=== PATIENT | male | born 1965 | race American Indian/Alaskan Native ===

== ENCOUNTER 2016-08-03 13:23 | Emergency (ER) | payer MEDICAID ==
[2016-08-03] MEDS ORDERED: KEPPRA 1,000 MG/NS 0.75% 100ML 1,000 MG/100 ML BAG IV ONE ×2 (13:41→13:43)
--- NOTE | 2016-08-03 13:50 | Emergency Department Report ---
ED Neuro Deficit HPI - General Chief Complaint: Neuro Symptoms/Deficit Stated Complaint: PASSED OUT Time Seen by Provider: 08/03/16 13:33 Source: patient Mode of arrival: Stretcher Limitations: Altered Mental Status, Physical Limitation - History of Present Illness Initial Comments: 51-year-old male presents to the emergency department via EMS for evaluation of altered mental status. Family states that the patient underwent brain surgery approximately 3 weeks ago at [place] for a tumor. He had been doing well since then. He was last seen normal last night at 8:30 PM. Family states that she found the patient lying on the floor just prior to arrival this morning. Patient states he thinks he may have had a seizure. He denies pain. There are no other complaints. -: During the night, unknown Last Observed Normal: 20:30 Location: speech, right face, dysarthria, right arm, right leg Presenting Symptoms: Present: Weak/Paralyzed One Side, Unable to Speak Clearly History of same: No Place: home Severity: severe Quality: weak Improves With: none Worsens With: none On Anticoagulants: No Context: found down Associated Symptoms: seizures Treatments Prior to Arrival: none - Related Data Home Medications: Home Medications Medication Instructions Recorded Confirmed Last Taken Dexamethasone [Decadron] 2 mg PO BID 08/03/16 08/03/16 Unknown levETIRAcetam [Keppra TAB] 1,000 mg PO BID 08/03/16 08/03/16 08/03/16 oxyCODONE /ACETAMINOPHEN [Percocet 2 tab PO Q6HR PRN 08/03/16 08/03/16 Unknown 5/325 mg] Allergies/Adverse Reactions: Allergies Allergy/AdvReac Type Severity Reaction Status Date / Time No Known Allergies Allergy Unverified 08/03/16 13:34 ED Review of Systems ROS: Stated complaint: PASSED OUT Other details as noted in HPI Comment: All other systems reviewed and negative Neurological: as per HPI, weakness ED Past Medical Hx - Past Medical History Previous Medical History?: Yes Additional medical history: Brain tumor - Surgical History Past Surgical History?: Yes Additional Surgical History: brain surgery 07/10/16 @ [place] - Family History Family history: no significant - Social History Smoking Status: Never Smoker - Medications Home Medications: Home Medications Medication Instructions Recorded Confirmed Last Taken Type Dexamethasone [Decadron] 2 mg PO BID 08/03/16 08/03/16 Unknown History levETIRAcetam [Keppra TAB] 1,000 mg PO BID 08/03/16 08/03/16 08/03/16 History oxyCODONE /ACETAMINOPHEN [Percocet 2 tab PO Q6HR PRN 08/03/16 08/03/16 Unknown History 5/325 mg] ED Neuro Physical Exam - General Limitations: Altered Mental Status, Physical Limitation General appearance: alert, in no apparent distress Suspected Stroke: Yes - Head Head exam: Present: atraumatic, normocephalic - Eye Eye exam: Present: normal appearance, PERRL, EOMI - ENT ENT exam: Present: normal orophraynx, mucous membranes moist, other (contusion noted to upper lip) - Neck Neck exam: Present: normal inspection, full ROM. Absent: tenderness - Respiratory Respiratory exam: Present: normal lung sounds bilaterally. Absent: respiratory distress - Cardiovascular Cardiovascular Exam: Present: regular rate, normal rhythm, normal heart sounds - GI/Abdominal GI/Abdominal exam: Present: soft, normal bowel sounds. Absent: distended, tenderness - Extremities Exam Extremities exam: Present: normal inspection, full ROM. Absent: tenderness - Back Exam Back exam: Present: normal inspection, full ROM. Absent: tenderness - Neurological Exam Neurological exam: Present: alert, motor sensory deficit, other (right-sided sharon-neglect) - NIHSS Assessment Interval: Baseline 1a. Level of Consciousness: alert 1b. LOC Questions: answers correctly 1c. LOC Commands: performs tasks correctly 2. Best Gaze: partial gaze palsy 3. Visual: no visual loss 4. Facial Palsy: minor paralysis 5b. Motor Arm Right: no movement 5a. Motor Arm Left: no drift 6a. Motor Leg Left: no drift 6b. Motor Leg Right: no movement 7. Limb Ataxia: absent 8. Sensory: severe/total sensory loss 9. Best Language: no aphasia 10. Dysarthria: severe dysarthria 11. Extinction/Inattention: profound inattention Total Score: 16 Stroke Severity: Moderate to Severe Stroke - Skin Skin exam: Present: warm, dry, intact ED Course Vital Signs 08/03/16 08/03/16 08/03/16 13:24 13:30 13:34 Temperature 98.9 F Pulse Rate 52 L 52 L Respiratory 11 L 14 Rate Blood Pressure 126/73 119/72 O2 Sat by Pulse 100 98 Oximetry 0608/03/16 08/03/16 13:39 13:40 13:56 Temperature Pulse Rate 52 L 51 L Respiratory 14 13 Rate Blood Pressure 126/73 126/73 O2 Sat by Pulse 99 99 Oximetry 08/03/16 08/03/16 08/03/16 14:12 14:20 14:30 Temperature Pulse Rate 59 L 58 L 56 L Respiratory 13 13 Rate Blood Pressure 108/73 108/73 109/70 O2 Sat by Pulse 100 100 99 Oximetry 08/03/16 08/03/16 08/03/16 14:40 14:50 15:00 Temperature Pulse Rate 58 L 58 L 57 L Respiratory 14 13 13 Rate Blood Pressure 109/70 109/70 111/68 O2 Sat by Pulse 99 99 100 Oximetry 08/03/16 08/03/16 08/03/16 15:10 15:20 15:30 Temperature Pulse Rate 59 L 55 L 60 Respiratory 12 13 14 Rate Blood Pressure 111/68 111/68 114/69 O2 Sat by Pulse 99 99 97 Oximetry 08/03/16 08/03/16 08/03/16 15:40 15:50 16:00 Temperature Pulse Rate 57 L 59 L 58 L Respiratory 15 13 13 Rate Blood Pressure 114/69 114/69 110/68 O2 Sat by Pulse 100 99 98 Oximetry - Lab Data Result diagrams: 08/03/16 13:47 08/03/16 13:47 Lab Results 08/03/16 08/03/16 08/03/16 Range/Units 13:47 13:47 13:47 WBC 15.4 H (4.5-11.0) K/mm3 RBC 5.14 H (3.65-5.03) M/mm3 Hgb 15.6 H (11.8-15.2) gm/dl Hct 47.3 H (35.5-45.6) % MCV 92 (84-94) fl MCH 30 (28-32) pg MCHC 33 (32-34) % RDW 14.5 (13.2-15.2) % Plt Count 199 (140-440) K/mm3 Add Manual Diff Complete Total Counted 100 Seg Neuts % (Manual) 91.0 H (40.0-70.0) % Band Neutrophils % 1.0 % Lymphocytes % (Manual) 1.0 L (13.4-35.0) % Reactive Lymphs % (Man) 0 % Monocytes % (Manual) 6.0 (0.0-7.3) % Eosinophils % (Manual) 0 (0.0-4.3) % Basophils % (Manual) 0 (0.0-1.8) % Metamyelocytes % 1.0 % Myelocytes % 0 % Promyelocytes % 0 % Blast Cells % 0 % Nucleated RBC % Not Reportable Seg Neutrophils # Man 14.0 H (1.8-7.7) K/mm3 Band Neutrophils # 0.2 K/mm3 Lymphocytes # (Manual) 0.2 L (1.2-5.4) K/mm3 Abs React Lymphs (Man) 0.0 K/mm3 Monocytes # (Manual) 0.9 H (0.0-0.8) K/mm3 Eosinophils # (Manual) 0.0 (0.0-0.4) K/mm3 Basophils # (Manual) 0.0 (0.0-0.1) K/mm3 Metamyelocytes # 0.2 K/mm3 Myelocytes # 0.0 K/mm3 Promyelocytes # 0.0 K/mm3 Blast Cells # 0.0 K/mm3 WBC Morphology Not Reportable Hypersegmented Neuts Not Reportable Hyposegmented Neuts Not Reportable Hypogranular Neuts Not Reportable Smudge Cells Not Reportable Toxic Granulation Not Reportable Toxic Vacuolation Not Reportable Dohle Bodies Not Reportable Pelger-Huet Anomaly Not Reportable Ana Rods Not Reportable Platelet Estimate Appears normal Clumped Platelets Not Reportable Plt Clumps, EDTA Not Reportable Large Platelets Not Reportable Giant Platelets Not Reportable Platelet Satelliting Not Reportable Plt Morphology Comment Not Reportable RBC Morphology Normal Dimorphic RBCs Not Reportable Polychromasia Not Reportable Hypochromasia Not Reportable Poikilocytosis Not Reportable Anisocytosis Not Reportable Microcytosis Not Reportable Macrocytosis Not Reportable Spherocytes Not Reportable Pappenheimer Bodies Not Reportable Sickle Cells Not Reportable Target Cells Not Reportable Tear Drop Cells Not Reportable Ovalocytes Not Reportable Helmet Cells Not Reportable [place] Bodies Not Reportable [place] Rings Not Reportable Candace Cells Not Reportable Bite Cells Not Reportable Crenated Cell Not Reportable Elliptocytes Not Reportable Acanthocytes (Spur) Not Reportable Rouleaux Not Reportable Hemoglobin C Crystals Not Reportable Schistocytes Not Reportable Malaria parasites Not Reportable Kushal Bodies Not Reportable Hem Pathologist Commnt No Sodium 143 (137-145) mmol/L Potassium 3.3 L (3.6-5.0) mmol/L Chloride 98.1 (98-107) mmol/L Carbon Dioxide 33 H (22-30) mmol/L Anion Gap 15 mmol/L BUN 14 (9-20) mg/dL Creatinine 0.7 L (0.8-1.5) mg/dL Estimated GFR > 60 ml/min BUN/Creatinine Ratio 20.00 % Glucose 86 (75-100) mg/dL Lactic Acid 1.80 (0.7-2.0) mmol/L Calcium 8.9 (8.4-10.2) mg/dL Magnesium 2.10 (1.7-2.3) mg/dL Total Bilirubin 0.30 (0.1-1.2) mg/dL AST 18 (5-40) units/L ALT 30 (7-56) units/L Alkaline Phosphatase 99 (35-129) units/L Total Protein 6.3 (6.3-8.2) g/dL Albumin 3.5 L (3.9-5) g/dL Albumin/Globulin Ratio 1.3 % TSH (0.270-4.200) mlU/mL 08/03/ Range/Units 13:47 WBC (4.5-11.0) K/mm3 RBC (3.65-5.03) M/mm3 Hgb (11.8-15.2) gm/dl Hct (35.5-45.6) % MCV (84-94) fl MCH (28-32) pg MCHC (32-34) % RDW (13.2-15.2) % Plt Count (140-440) K/mm3 Add Manual Diff Total Counted Seg Neuts % (Manual) (40.0-70.0) % Band Neutrophils % % Lymphocytes % (Manual) (13.4-35.0) % Reactive Lymphs % (Man) % Monocytes % (Manual) (0.0-7.3) % Eosinophils % (Manual) (0.0-4.3) % Basophils % (Manual) (0.0-1.8) % Metamyelocytes % % Myelocytes % % Promyelocytes % % Blast Cells % % Nucleated RBC % Seg Neutrophils # Man (1.8-7.7) K/mm3 Band Neutrophils # K/mm3 Lymphocytes # (Manual) (1.2-5.4) K/mm3 Abs React Lymphs (Man) K/mm3 Monocytes # (Manual) (0.0-0.8) K/mm3 Eosinophils # (Manual) (0.0-0.4) K/mm3 Basophils # (Manual) (0.0-0.1) K/mm3 Metamyelocytes # K/mm3 Myelocytes # K/mm3 Promyelocytes # K/mm3 Blast Cells # K/mm3 WBC Morphology Hypersegmented Neuts Hyposegmented Neuts Hypogranular Neuts Smudge Cells Toxic Granulation Toxic Vacuolation Dohle Bodies Pelger-Huet Anomaly Ana Rods Platelet Estimate Clumped Platelets Plt Clumps, EDTA Large Platelets Giant Platelets Platelet Satelliting Plt Morphology Comment RBC Morphology Dimorphic RBCs Polychromasia Hypochromasia Poikilocytosis Anisocytosis Microcytosis Macrocytosis Spherocytes Pappenheimer Bodies Sickle Cells Target Cells Tear Drop Cells Ovalocytes Helmet Cells [place] Bodies [place] Cells Bite Cells Crenated Cell Elliptocytes Acanthocytes (Spur) Rouleaux Hemoglobin C Crystals Schistocytes Malaria parasites Kushal Bodies Hem Pathologist Commnt Sodium (137-145) mmol/L Potassium (3.6-5.0) mmol/L Chloride (98-107) mmol/L Carbon Dioxide (22-30) mmol/L Anion Gap mmol/L BUN (9-20) mg/dL Creatinine (0.8-1.5) mg/dL Estimated GFR ml/min BUN/Creatinine Ratio % Glucose (75-100) mg/dL Lactic Acid (0.7-2.0) mmol/L Calcium (8.4-10.2) mg/dL Magnesium (1.7-2.3) mg/dL Total Bilirubin (0.1-1.2) mg/dL AST (5-40) units/L ALT (7-56) units/L Alkaline Phosphatase (35-129) units/L Total Protein (6.3-8.2) g/dL Albumin (3.9-5) g/dL Albumin/Globulin Ratio % TSH 1.380 (0.270-4.200) mlU/mL - Radiology Data Radiology results: report reviewed, image reviewed CT of the head was discussed with the radiologist. There is a moderate amount of edema noted in the left frontal and temporal lobes with approximately 1 cm of midline shift to the right. There is no hemorrhage. - Medical Decision Making Lab and imaging results reviewed and discussed with the family. Patient has had some further seizure activity in the emergency department. He has been given IV Keppra and IV Ativan. I have spoken with Dr. Shaikh, neurosurgery at [place]. Patient is being given IV dexamethasone for the cerebral edema. Patient has been accepted in transfer and is currently awaiting transport. - Differential Diagnosis stroke, ICH, seizure, Naeem's paralysis - Thrombolytic Inclusion/Exclusion Thrombolytic Exclusion Criteria: Onset of Symptoms Unknown Thrombolytic Contraindications: Head Trauma in Past 3 Mon, Seizure at Onset Critical care attestation.: If time is entered above; I have spent that time in minutes in the direct care of this critically ill patient, excluding procedure time. ED Disposition Clinical Impression: Mass of cerebral hemisphere [facility] Is pt being admited?: No Condition: Stable Time of Disposition: 16:00
--- NOTE | 2016-08-03 13:52 | Admit Criteria Form ---
Admission Criteria Documentation: MENTAL STATUS CHANGE Clinical Indications for Inpatient Care (Place 'X' for any and all applicable criteria): Ongoing inpatient care may be needed for 1 or more of the following(1)(2)(3)(5)( 6): [X ]I. Suspected serious etiology (eg, medical disorder, [employer] event) of altered mental status [ ]II. Danger to self or others not manageable at lower level of care [ ]III. Grave disability (eg, inability to perform self care necessary at lower level of care) [ ]IV. Agitation or inappropriate behavior interfering with care for primary condition (eg, attempting to discontinue lines or drains prematurely, unable to cooperate with respiratory care) [ ]V. Delirium [A] [D][E] as described by 1 or more of the following(26): [ ]a) Delirium due to alcohol or sedative [F] withdrawal [ ]b) Delirium of uncertain etiology that has not responded to appropriate empiric treatment [ ]c) Delirium that prevents performance of a life-sustaining function (eg, feeding or hydrating oneself) [ ]. General contraindications and/or Inappropriate clinical situations for Observational Care in patients with Mental Status Change, when ANY ONE of the following is required: [ ]a) Prediction of prolongation of LOS based on ANY ONE of the following may be considered as a contraindication for observational care 2, 3, 4, 5, 6, 7, 8, 9, 10, 11 [ ]i) Age > 65 yrs. [ ]ii) Patient arriving by ambulance [ ]iii) Patient with high acuity [ ]iv) Patient requiring vital sign monitoring [ ]v) Patient on IV medication [ ]b) Systolic blood pressures greater than or equal to 180mmHg 3, 12 [ ]c) Patient with altered mental status including delirium and other alteration of consciousness, (3) [ ]d) Patient whose discharge disposition will be to a fdc home or rehabilitation home should not be managed in Emergency Department Observation Unit. CMS rule requires 3 days hospital stay before such placement.3,13 [ ]e) Patient with failure to thrive due to broad array of etiologies 3,16,17 [ ]f) Inability to ambulate 3,14 Extended stay beyond goal length of stay for the primary condition may be needed until ALL of the following are present(3)(5): [ ]a) Underlying medical etiology of mental status change is absent, or has been established and adequately treated [ ]b) Danger to self or others is absent or manageable at lower level of care. [ ]c) Behavior crisis management, including physical or chemical restraints, is not required or available at lower level of car [ ]d) Substance or alcohol withdrawal is absent or manageable at lower level of care. [ ]e) Behavioral symptoms (eg, agitation, somnolence, inappropriate behavior) are absent, or are manageable at lower level of care. The original [facility] [employer] content created by [facility] has been revised. The portions of the content which have been revised are identified through the use of italic text or in bold, and [facility] has neither reviewed nor approved the modified material. All other unmodified content is copyright [facility]. Please see references footnoted in the original [facility] edition 2016
[2016-08-03] MEDS ORDERED: ATIVAN IV ONE (13:58)
[2016-08-03] MEDS ORDERED: ATIVAN ONE (14:01)
[2016-08-03 14:07] LABS: Hematocrit 47.3 % (35.5-45.6); Hemoglobin 15.6 gm/dl (11.8-15.2); Mean Corpuscular HGB Conc 33 % (32-34); Mean Corpuscular Hemoglobin 30 pg (28-32); Mean Corpuscular Volume 92 fl (84-94); Platelet Count 199 K/mm3 (140-440); Red Blood Count 5.14 M/mm3 (3.65-5.03); Red Cell Distribution Width 14.5 % (13.2-15.2); White Blood Count 15.4 K/mm3 (4.5-11.0)
--- NOTE | 2016-08-03 14:33 | Cat Scan Report ---
CT HEAD WITHOUT CONTRAST: HISTORY: Right sided aminoglycoside CVA, recent brain surgery. There are no comparison exams at this facility. Left frontotemporal craniotomy changes are noted. There is a large area of diminished attenuation in the left cerebral hemisphere measuring up to 7.9 x 4.4 cm in axial plane. This has the appearance of edema. This may represent a large area of ischemia. There is moderate sulcal effacement in the left cerebral hemisphere and right to left midline shift measuring up to 1 cm. No obvious herniation. The right cerebral hemisphere and posterior fossa are unremarkable. Ventricular size is within normal limits although there is compression of the left ventricle by edema in the left cerebral hemisphere. No large area of hemorrhage is appreciated. IMPRESSION: Abnormal edema and diminished attenuation throughout most of the left cerebral hemisphere. This is in the area of surgical changes. There are no comparison studies at this facility. I suspect this represents a large area of acute to subacute ischemia. These correlate with the patient's clinical history and consider further imaging with MRI as needed. These findings were discussed with Dr. Pinon in the emergency department at 1423 hrs.
[2016-08-03 14:34] LABS: Alanine Aminotransferase 30 units/L (7-56); Albumin 3.5 g/dL (3.9-5); Albumin/Globulin Ratio 1.3 %; Alkaline Phosphatase 99 units/L (35-129); Anion Gap 15 mmol/L; Blood Urea Nitrogen 14 mg/dL (9-20); Calcium 8.9 mg/dL (8.4-10.2); Carbon Dioxide 33 mmol/L (22-30); Chloride 98.1 mmol/L (98-107); Glucose 86 mg/dL (75-100); Potassium 3.3 mmol/L (3.6-5.0); Sodium 143 mmol/L (137-145); Total Protein 6.3 g/dL (6.3-8.2)
[2016-08-03] MEDS ORDERED: DECADRON IV ONE (14:56)
[2016-08-03 14:58] LABS: Basophils % (Manual) 0 % (0.0-1.8); Blastocytes % (Manual) 0 %; Diff Status Complete; Eosinophils % (Manual) 0 % (0.0-4.3); RBC Morphology Normal
[2016-08-03 17:32] VITALS: BP 111/76
== END 2016-08-03 17:33 | disposition short-term general hospital (02) ==
LOC: ED 13:23
DX: G93.89 Other specified disorders of brain (principal); C71.9 Malignant neoplasm of brain, unspecified
CPT/HCPCS: 36415; 70450; 80053; 82140; 83735; 84443; 85007; 85025; 96374; 96375; 99285; J1100; J1953; J2060; 82962

== ENCOUNTER 2017-02-02 14:06 | Emergency (ER) | payer MEDICAID ==
[2017-02-02] MEDS ORDERED: VIMPAT PO ONE (14:41)
[2017-02-02 15:11] LABS: Basophils % (Auto) 0.9 % (0.0-1.8); Eosinophils % (Auto) 0.5 % (0.0-4.3); Hematocrit 44.4 % (35.5-45.6); Hemoglobin 14.7 gm/dl (11.8-15.2); Mean Corpuscular HGB Conc 33 % (32-34); Mean Corpuscular Hemoglobin 29 pg (28-32); Mean Corpuscular Volume 88 fl (84-94); Platelet Count 212 K/mm3 (140-440); Red Blood Count 5.03 M/mm3 (3.65-5.03); Red Cell Distribution Width 16.5 % (13.2-15.2); White Blood Count 6.3 K/mm3 (4.5-11.0)
[2017-02-02 15:29] LABS: Anion Gap 18 mmol/L; BUN/Creatinine Ratio 6; Blood Urea Nitrogen 4 mg/dL (9-20); Calcium 8.9 mg/dL (8.4-10.2); Carbon Dioxide 23 mmol/L (22-30); Chloride 100.1 mmol/L (98-107); Creatine Kinase 31 units/L (55-170); Glucose 92 mg/dL (75-100); Potassium 3.8 mmol/L (3.6-5.0); Sodium 137 mmol/L (137-145)
[2017-02-02] MEDS ORDERED: KEPPRA 1,000 MG/NS 0.75% 100ML 1,000 MG/100 ML BAG IV ONE (15:29)
[2017-02-02] MEDS ORDERED: MAGNESIUM SULFATE 2GM/50ML 2 GM/50 ML BAG IV ONE (15:33)
--- NOTE | 2017-02-02 15:37 | Emergency Department Report ---
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 Patient has been noncompliant with Keppra and Vimpat for over 30 days because it was not refilled his doctors at [place]. Patient has a left-sided brain tumor with partial resection. He typically has seizures that involved the right side of his face but can also spread to the left side of his face during severe episodes. Patient had 5 of these seizures today Since 1 PM involving facial spasms. Patient complains of moderate facial pain secondary to the seizures. No extremity involvement today and patient denies any weakness or numbness - Related Data Home Medications Medication Instructions Recorded Confirmed Last Taken Dexamethasone [Decadron] 2 mg PO BID 08/03/16 08/03/16 Unknown Previous Rx's Medication Instructions Recorded Last Taken Type Acetaminophen [Acetaminophen TAB] 325 mg PO Q4H PRN #15 tablet 11/05/16 Unknown Rx Insulin Lispro [HumaLOG VIAL] 1 dose SQ AC #1 vial 11/05/16 Unknown Rx Nitrofurantoin [place]/M-Cryst 100 mg PO Q12HR #3 day 11/05/16 Unknown Rx [Macrobid CAP] methylPREDNISolone [Medrol Dose 1 dose PO DAILY #1 pack 11/05/16 Unknown Rx Don] oxyCODONE /ACETAMINOPHEN [Percocet 1 tab PO Q6HR PRN #30 tablet 11/05/16 Unknown Rx 5/325 mg] Lacosamide [Vimpat] 100 mg PO Q12HR #60 tab 02/02/17 Unknown Rx levETIRAcetam [Keppra TAB] 1,000 mg PO BID #60 tab 02/02/17 Unknown Rx Allergies Allergy/AdvReac Type Severity Reaction Status Date / Time SHRIMP AdvReac Swelling Uncoded 02/02/17 14:25 ED Review of Systems ROS: Stated complaint: SEIZURES Other details as noted in HPI Comment: All other systems reviewed and negative Other: Constitutional: No fevers chills Eyes: No eye pain visual changes ENT: No ear pain or throat pain Neck: Denies pain Respiratory: Denies cough wheezing shortness of breath Cardiovascular: Denies chest pain, palpitations, syncope GI: Denies abdominal pain, nausea, vomiting, diarrhea, : Denies dysuria Musculoskeletal: Denies back pain Skin: Denies rash, lesions, erythema Neurologic: Denies headache, numbness, weakness Psychiatric: Denies suicidal ideation, hallucinations ED Past Medical Hx - Past Medical History Hx Diabetes: Yes Hx Seizures: Yes (new onset) Additional medical history: Brain tumor - Surgical History Additional Surgical History: brain surgery 07/10/16 @ [facility] hx of [facility] dz - Social History Smoking Status: Current Every Day Smoker Substance Use Type: None - Medications Home Medications: Home Medications Medication Instructions Recorded Confirmed Last Taken Type Dexamethasone [Decadron] 2 mg PO BID 08/03/16 08/03/16 Unknown History Acetaminophen [Acetaminophen TAB] 325 mg PO Q4H PRN #15 tablet 11/05/16 Unknown Rx Insulin Lispro [HumaLOG VIAL] 1 dose SQ AC #1 vial 11/05/16 Unknown Rx Nitrofurantoin [place]/M-Cryst 100 mg PO Q12HR #3 day 11/05/16 Unknown Rx [Macrobid CAP] methylPREDNISolone [Medrol Dose 1 dose PO DAILY #1 pack 11/05/16 Unknown Rx Don] oxyCODONE /ACETAMINOPHEN [Percocet 1 tab PO Q6HR PRN #30 tablet 11/05/16 Unknown Rx 5/325 mg] Lacosamide [Vimpat] 100 mg PO Q12HR #60 tab 02/02/17 Unknown Rx levETIRAcetam [Keppra TAB] 1,000 mg PO BID #60 tab 02/02/17 Unknown Rx ED Physical Exam - General Limitations: No Limitations - Other Other exam information: General: No limitations, patient is alert in no acute distress Head exam: Atraumatic, normocephalic Eyes exam: Normal appearance ENT: Moist mucous membrane, normal oropharynx Neck exam: Normal inspection, full range of motion, no meningismus nontender Respiratory exam: Clear to auscultation bilateral, no wheezes, rales, crackles Cardiovascular: Normal rate and rhythm, normal heart sounds Abdomen: Soft, nondistended, and nontender, with normal bowel sounds, no rebound, or guarding Extremity: Full range of motion normal inspection no deformity Back: Normal Inspection, full range of motion, no tenderness Neurologic: Alert, oriented x3, cranial nerves intact, no motor or sensory deficit Psychiatric: normal affect, normal mood Skin: Warm, dry, intact ED Course Vital Signs 02/02/17 02/02/17 02/02/17 14:26 14:39 14:45 Temperature 98.8 F Pulse Rate 72 58 L Respiratory 16 Rate Blood Pressure 121/94 129/77 Blood Pressure [Left] O2 Sat by Pulse 97 96 98 Oximetry 02/02/17 02/02/17 02/02/17 15:03 15:15 15:30 Temperature Pulse Rate Respiratory Rate Blood Pressure 129/77 129/77 129/81 Blood Pressure [Left] O2 Sat by Pulse 98 98 98 Oximetry 02/02/17 02/02/17 02/02/17 15:45 17:24 17:30 Temperature Pulse Rate Respiratory Rate Blood Pressure 129/77 105/69 94/61 Blood Pressure [Left] O2 Sat by Pulse 97 96 92 Oximetry 02/02/17 17:45 Temperature Pulse Rate 58 L Respiratory 12 Rate Blood Pressure Blood Pressure 101/64 [Left] O2 Sat by Pulse 100 Oximetry - Reevaluation(s) Reevaluation #1: 02/02/17 15:36 Patient treated with by mouth Vimpat. IV Keppra and IV magnesium also ordered ED Medical Decision Making - Lab Data Result diagrams: 02/02/17 14:51 02/02/17 14:51 Lab Results 02/02/17 02/02/17 02/02/17 Range/Units 14:51 14:51 14:57 WBC 6.3 (4.5-11.0) K/mm3 RBC 5.03 (3.65-5.03) M/mm3 Hgb 14.7 (11.8-15.2) gm/dl Hct 44.4 (35.5-45.6) % MCV 88 (84-94) fl MCH 29 (28-32) pg MCHC 33 (32-34) % RDW 16.5 H (13.2-15.2) % Plt Count 212 (140-440) K/mm3 Lymph % (Auto) 15.0 (13.4-35.0) % [place] % (Auto) 6.9 (0.0-7.3) % Eos % (Auto) 0.5 (0.0-4.3) % Baso % (Auto) 0.9 (0.0-1.8) % Lymph # 0.9 L (1.2-5.4) K/mm3 [place] # 0.4 (0.0-0.8) K/mm3 Eos # 0.0 (0.0-0.4) K/mm3 Baso # 0.1 (0.0-0.1) K/mm3 Seg Neutrophils % 76.7 H (40.0-70.0) % Seg Neutrophils # 4.8 (1.8-7.7) K/mm3 Sodium 137 (137-145) mmol/L Potassium 3.8 (3.6-5.0) mmol/L Chloride 100.1 (98-107) mmol/L Carbon Dioxide 23 (22-30) mmol/L Anion Gap 18 mmol/L BUN 4 L (9-20) mg/dL Creatinine 0.7 L (0.8-1.5) mg/dL Estimated GFR > 60 ml/min BUN/Creatinine Ratio 6 % Glucose 92 (75-100) mg/dL POC Glucose 87 (70-105) Calcium 8.9 (8.4-10.2) mg/dL Magnesium 1.60 L (1.7-2.3) mg/dL Total Creatine Kinase 31 L (55-170) units/L - Medical Decision Making Patient has normal lab work with a session of mild hypomagnesemia which was supplemented IV. Patient received by mouth Vimpat and IV Keppra for his long- standing seizure disorder. A refill of these medications will be provided. Patient does not have a PMD in follow-up options for follow-up will be provided - Differential Diagnosis medication noncompliance, electrolyte abnormality, breakthrough seizure Critical Care Time: No Critical care attestation.: If time is entered above; I have spent that time in minutes in the direct care of this critically ill patient, excluding procedure time. ED Disposition Clinical Impression: Recurrent seizures, Noncompliance with medication regimen, Brain cancer, Hypomagnesemia Disposition: DC-01 TO HOME OR SELFCARE Is pt being admited?: No Does the pt Need Aspirin: No Condition: Stable Instructions: Recurrent Seizures Adult (ED), Hypomagnesemia (ED) Additional Instructions: Take the medications as prescribed. Continue to follow-up with your doctors. I provided several primary care doctors as an option for follow-up Prescriptions: Lacosamide [Vimpat] 100 mg PO Q12HR #60 tab levETIRAcetam [Keppra TAB] 1,000 mg PO BID #60 tab Referrals: NIKI HERNÁNDEZ MD [Primary Care Provider] - 3-5 Days JOSIANE FORTUNE MD [Staff Physician] - 3-5 Days SARAI MORA MD [Staff Physician] - 3-5 Days Time of Disposition: 17:53
[2017-02-02 18:55] VITALS: BP 104/67
== END 2017-02-02 18:56 | disposition home or self-care (01) ==
LOC: ED 14:06
DX: G40.909 Epilepsy, unspecified, not intractable, without status epilepticus (principal); Z91.14 Patient's other noncompliance with medication regimen; C71.9 Malignant neoplasm of brain, unspecified; F17.200 Nicotine dependence, unspecified, uncomplicated; E83.42 Hypomagnesemia
CPT/HCPCS: 36415; 80048; 82550; 82962; 83735; 85025; 96365; 96375; 99284; J1953; J3475

== ENCOUNTER 2018-08-17 21:40 | Emergency (ER) | payer MEDICAID, OTHER ==
[2018-08-17 22:06] LABS: Basophils # (Auto) 0.1 K/mm3 (0.0-0.1); Basophils % (Auto) 1.2 % (0.0-1.8); Eosinophils # (Auto) 0.1 K/mm3 (0.0-0.4); Eosinophils % (Auto) 0.8 % (0.0-4.3); Hematocrit 42.4 % (35.5-45.6); Hemoglobin 14.2 gm/dl (11.8-15.2); Lymphocytes # (Auto) 1.9 K/mm3 (1.2-5.4); Lymphocytes % (Auto) 22.6 % (13.4-35.0); Mean Corpuscular HGB Conc 34 % (32-34); Mean Corpuscular Volume 92 fl (84-94); Monocytes # (Auto) 0.7 K/mm3 (0.0-0.8); Monocytes % (Auto) 8.2 % (0.0-7.3); Platelet Count 329 K/mm3 (140-440); Red Blood Count 4.63 M/mm3 (3.65-5.03); Red Cell Distribution Width 15.2 % (13.2-15.2)
--- NOTE | 2018-08-17 22:08 | Emergency Department Report ---
ED Neuro Deficit HPI - General Chief Complaint: Neuro Symptoms/Deficit Stated Complaint: STROKE Time Seen by Provider: 08/17/18 22:00 Source: patient, EMS Mode of arrival: Stretcher Limitations: No Limitations - History of Present Illness Initial Comments: [facility] Impression: right sided weakness. Subdural post surgery v lvo. Suspect this is due to left hygroma post recent surgery; however, without previous imaging unclear to be able to tell if this is new or not and ? left mca hyperdensity could suggest lvo Not a tpa candidate due to: recent brain surgery Cta head and neck will be done to r/o lvo Differential Diagnosis: 1. Cardioembolic stroke 2. Small vessel disease/lacune 3. Thromboembolic, [id number] mechanism 4. Hypercoagulable state-related infarct 5. Transient ischemic attack 6. Thrombotic mechanism, large artery disease Comments: [employer] contacted: [phone] [facility] at bedside: [phone] Recommendations: No anticoagulants /antiplatelets at this time, given subdural collection Cta head and neck with and without contrast to be done here; however, would require transfer to [place] given his ct head changes for neurosurgery consult Neuro checks Telemetry Mechanical dvt prophy Continue current AEDs- give 1g Keppra now inpatient neurology consultation Inpatient stroke evaluation as per Neurology/ Internal Medicine Discussed with ED MD --------- CC right sided weakness History of Present Illness Patient is a 53 year old man who was brought to the hospital for right sided weakness, acute. No seizures witnessed per what family told ems. Recent left brain surgery this past week for brain tumor. Diagnostic: Ct head without contrast: left frontal/parietal/temporal subdural/hygroma, craniotomy on left hemisphere, left temporal lobe encephalomalacia. Bilateral mcas look hyperdense- left more than right Medical Decision Making: - Extensive number of diagnosis or management options are considered above. - Extensive amount of complex data reviewed. - High risk of complication and/or morbidity or mortality are associated with differential diagnostic considerations above. - There may be Uncertain outcome and increased probability of prolonged functional impairment or high probability of severe prolonged functional impairment associated with some of these differential diagnosis. Medical Data Reviewed: 1.Data reviewed include clinical labs, radiology, Medical Tests; 2.Tests results discussed w/performing or interpreting physician; 3.Obtaining/reviewing old medical records; 4.Obtaining case history from another source; 5.Independent review of image, tracing or specimen. Patient was informed the Neurology Consult would happen via telehealth (remote video) and consented to receiving care in this manner. - Related Data Home Medications: Home Medications Medication Instructions Recorded Confirmed Last Taken dexAMETHasone [Decadron] 2 mg PO BID 08/03/16 08/03/16 Unknown Previous Rx's Medication Instructions Recorded Last Taken Type Acetaminophen [Acetaminophen TAB] 325 mg PO Q4H PRN #15 tablet 11/05/16 Unknown Rx Insulin Lispro [HumaLOG VIAL] 1 dose SQ AC #1 vial 11/05/16 Unknown Rx Nitrofurantoin [place]/M-Cryst 100 mg PO Q12HR #3 day 11/05/16 Unknown Rx [Macrobid CAP] methylPREDNISolone [Medrol Dose 1 dose PO DAILY #1 pack 11/05/16 Unknown Rx Don] oxyCODONE /ACETAMINOPHEN [Percocet 1 tab PO Q6HR PRN #30 tablet 11/05/16 Unknown Rx 5/325 mg] Lacosamide [Vimpat] 100 mg PO Q12HR #60 tab 02/02/17 Unknown Rx levETIRAcetam [Keppra TAB] 1,000 mg PO BID #60 tab 02/02/17 Unknown Rx Allergies/Adverse Reactions: Allergies Allergy/AdvReac Type Severity Reaction Status Date / Time SHRIMP AdvReac Swelling Uncoded 02/02/17 14:25 ED Review of Systems ROS: Stated complaint: STROKE Other details as noted in HPI ED Past Medical Hx - Past Medical History Hx Diabetes: Yes Hx Seizures: Yes (new onset) Additional medical history: Brain tumor - Surgical History Additional Surgical History: brain surgery 07/10/16 @ [facility] hx of [facility] dz - Social History Smoking Status: Never Smoker - Medications Home Medications: Home Medications Medication Instructions Recorded Confirmed Last Taken Type dexAMETHasone [Decadron] 2 mg PO BID 08/03/16 08/03/16 Unknown History Acetaminophen [Acetaminophen TAB] 325 mg PO Q4H PRN #15 tablet 11/05/16 Unknown Rx Insulin Lispro [HumaLOG VIAL] 1 dose SQ AC #1 vial 11/05/16 Unknown Rx Nitrofurantoin [place]/M-Cryst 100 mg PO Q12HR #3 day 11/05/16 Unknown Rx [Macrobid CAP] methylPREDNISolone [Medrol Dose 1 dose PO DAILY #1 pack 11/05/16 Unknown Rx Don] oxyCODONE /ACETAMINOPHEN [Percocet 1 tab PO Q6HR PRN #30 tablet 11/05/16 Unknown Rx 5/325 mg] Lacosamide [Vimpat] 100 mg PO Q12HR #60 tab 02/02/17 Unknown Rx levETIRAcetam [Keppra TAB] 1,000 mg PO BID #60 tab 02/02/17 Unknown Rx ED Neuro Physical Exam - General Limitations: No Limitations Suspected Stroke: Yes - NIHSS Assessment Interval: Baseline 1a. Level of Consciousness: alert/keenly responsive 1b. LOC Questions: answers both correctly 1c. LOC Commands: performs tasks correctly 2. Best Gaze: forced deviation 3. Visual: no visual loss 4. Facial Palsy: partial paralysis 5b. Motor Arm Right: some gravity effort 5a. Motor Arm Left: no drift 6a. Motor Leg Left: no drift 6b. Motor Leg Right: drift 7. Limb Ataxia: absent 8. Sensory: normal 9. Best Language: no aphasia 10. Dysarthria: mild/moderate dysarthria 11. Extinction/Inattention: profound inattention Total Score: 10 Stroke Severity: Moderate Stroke Critical care attestation.: If time is entered above; I have spent that time in minutes in the direct care of this critically ill patient, excluding procedure time. ED Disposition Clinical Impression: Hygroma Disposition: OP ADMIT IP TO THIS HOSP Is pt being admited?: Yes Condition: Stable
--- NOTE | 2018-08-17 22:09 | Cat Scan Report ---
PROCEDURE: CT HEAD/BRAIN WO CON TECHNIQUE: Computerized tomography of the head was performed without contrast material. CT DOSE LENGTH PRODUCT: mGycm HISTORY: neuro deficits <6hrs or sx present upon awakening COMPARISONS: None . Patella. Findings FINDINGS: There is CSF density the middle cranial fossa with evidence of prior craniotomy consistent with posto perative change. There is a low-density left subdural collection this is new since the prior exam. Th ere is vasogenic edema present on the left. The left posterior frontal parietal region there is a mor e heterogeneous appearance underlying mass cannot be excluded. There is some hypodensity within the right supratentorial white matter are nonspecific. No acute intra or extra-axial hemorrhage identified. There is effacement of sulci on the left. IMPRESSION: Prior left craniotomy Left inferior temporal parenchymal defect presumably postoperative in nature. Findings most consistent with vasogenic edema on the left this seems to have been present previously. Consideration given to underlying mass White matter changes are also noted on the right without evidence of effacement of sulci. Left subdural low-density collection presumably postoperative in nature Given above findings underlying acute ischemic changes difficult to exclude Findings were discussed with Dr. Brennan at 10:06 PM EST on August 17, 2018 This document is electronically signed by Darshan Acuña MD., August 17 2018 10:07:27 PM ET
[2018-08-17 22:17] LABS: INR 1.04 (0.87-1.13)
[2018-08-17 22:18] LABS: Partial Thromboplastin Time 26.9 Sec. (24.2-36.6)
[2018-08-17 22:33] LABS: BUN/Creatinine Ratio 17; Blood Urea Nitrogen 15 mg/dL (9-20); Calcium 9.1 mg/dL (8.4-10.2); Hemolysis Index 10
--- NOTE | 2018-08-17 23:37 | Emergency Department Report ---
ED Neuro Deficit HPI - General Chief Complaint: Neuro Symptoms/Deficit Stated Complaint: STROKE Time Seen by Provider: 08/17/18 22:00 Source: patient, EMS Mode of arrival: Stretcher Limitations: No Limitations - History of Present Illness Initial Comments: Mr. Hernandez is a 53-year-old male with history of seizures, intracranial tumor status post recent resection one week ago who presents with stroke symptoms. 2 hours prior to arrival he had unsteady gait. Minutes before 911 was called, right facial droop, dysarthria and right arm weakness was evident. No previous history of stroke. His tumor resection brain surgery occurred at [facility]. He denies headache. He is alert and oriented 3. According to electronic medical record, Mr. Hernandez has history of diabetes mellitus, Crohn's disease. -: Sudden, This evening Location: left face, right face, dysarthria, right arm, ataxia History of same: No Place: home Severity: severe Quality: weak Improves With: none Worsens With: none On Anticoagulants: No Context: sudden onset Associated Symptoms: denies other symptoms Treatments Prior to Arrival: none - Related Data Home Medications: Home Medications Medication Instructions Recorded Confirmed Last Taken dexAMETHasone [Decadron] 2 mg PO BID 08/03/16 08/03/16 Unknown Previous Rx's Medication Instructions Recorded Last Taken Type Acetaminophen [Acetaminophen TAB] 325 mg PO Q4H PRN #15 tablet 11/05/16 Unknown Rx Insulin Lispro [HumaLOG VIAL] 1 dose SQ AC #1 vial 11/05/16 Unknown Rx Nitrofurantoin Ziebach/M-Cryst 100 mg PO Q12HR #3 day 11/05/16 Unknown Rx [Macrobid CAP] methylPREDNISolone [Medrol Dose 1 dose PO DAILY #1 pack 11/05/16 Unknown Rx Don] oxyCODONE /ACETAMINOPHEN [Percocet 1 tab PO Q6HR PRN #30 tablet 11/05/16 Unknown Rx 5/325 mg] Lacosamide [Vimpat] 100 mg PO Q12HR #60 tab 02/02/17 Unknown Rx levETIRAcetam [Keppra TAB] 1,000 mg PO BID #60 tab 02/02/17 Unknown Rx Allergies/Adverse Reactions: Allergies Allergy/AdvReac Type Severity Reaction Status Date / Time SHRIMP AdvReac Swelling Uncoded 02/02/17 14:25 ED Review of Systems ROS: Stated complaint: STROKE Other details as noted in HPI Comment: All other systems reviewed and negative Constitutional: denies: fever, malaise Respiratory: denies: cough Cardiovascular: denies: chest pain ED Past Medical Hx - Past Medical History Previous Medical History?: Yes Hx Diabetes: Yes Hx Seizures: Yes (new onset) Additional medical history: Brain tumor - Surgical History Additional Surgical History: brain surgery 07/10/16 @ [place] abd surgery hx of chronhs dz - Social History Smoking Status: Never Smoker - Medications Home Medications: Home Medications Medication Instructions Recorded Confirmed Last Taken Type dexAMETHasone [Decadron] 2 mg PO BID 08/03/16 08/03/16 Unknown History Acetaminophen [Acetaminophen TAB] 325 mg PO Q4H PRN #15 tablet 11/05/16 Unknown Rx Insulin Lispro [HumaLOG VIAL] 1 dose SQ AC #1 vial 11/05/16 Unknown Rx Nitrofurantoin Ziebach/M-Cryst 100 mg PO Q12HR #3 day 11/05/16 Unknown Rx [Macrobid CAP] methylPREDNISolone [Medrol Dose 1 dose PO DAILY #1 pack 11/05/16 Unknown Rx Don] oxyCODONE /ACETAMINOPHEN [Percocet 1 tab PO Q6HR PRN #30 tablet 11/05/16 Unknown Rx 5/325 mg] Lacosamide [Vimpat] 100 mg PO Q12HR #60 tab 02/02/17 Unknown Rx levETIRAcetam [Keppra TAB] 1,000 mg PO BID #60 tab 02/02/17 Unknown Rx ED Neuro Physical Exam - General Limitations: No Limitations General appearance: alert, in no apparent distress, other (obvious right facial droop) Suspected Stroke: Yes - Head Head exam: Present: atraumatic, normocephalic - Eye Eye exam: Present: normal appearance - ENT ENT exam: Present: mucous membranes moist - Neck Neck exam: Present: normal inspection, full ROM - Respiratory Respiratory exam: Present: normal lung sounds bilaterally. Absent: respiratory distress, wheezes, rales, rhonchi - Cardiovascular Cardiovascular Exam: Present: regular rate, normal rhythm, normal heart sounds. Absent: systolic murmur, diastolic murmur, rubs, gallop - GI/Abdominal GI/Abdominal exam: Present: soft, normal bowel sounds. Absent: distended, tenderness, guarding, rebound - Rectal Rectal exam: Present: deferred - Extremities Exam Extremities exam: Present: normal inspection - Back Exam Back exam: Present: normal inspection - Neurological Exam Neurological exam: Present: alert, oriented X3 - NIHSS Assessment Interval: Baseline 1a. Level of Consciousness: alert/keenly responsive 1b. LOC Questions: answers both correctly 1c. LOC Commands: performs tasks correctly 2. Best Gaze: partial gaze palsy 3. Visual: partial hemianopia 4. Facial Palsy: unilateral complete paralysis 5b. Motor Arm Right: drift 5a. Motor Arm Left: no drift 6a. Motor Leg Left: no drift 6b. Motor Leg Right: drift 7. Limb Ataxia: absent 8. Sensory: mild/moderate sensory loss 9. Best Language: mild/moderate aphasia 10. Dysarthria: mild/moderate dysarthria 11. Extinction/Inattention: visual/tactile inattention Total Score: 11 Stroke Severity: Moderate Stroke - Psychiatric Psychiatric exam: Present: normal affect, normal mood - Skin Skin exam: Present: warm, dry, intact, normal color. Absent: rash ED Course Vital Signs 08/17/18 08/17/18 22:30 23:35 Pulse Rate 63 60 Respiratory 16 8 L Rate Blood Pressure 115/77 121/62 [Right] O2 Sat by Pulse 99 100 Oximetry - Lab Data Result diagrams: 08/17/18 21:59 08/17/18 21:59 Lab Results 08/17/18 08/17/18 08/17/18 Range/Units 21:59 21:59 21:59 WBC 8.6 (4.5-11.0) K/mm3 RBC 4.63 (3.65-5.03) M/mm3 Hgb 14.2 (11.8-15.2) gm/dl Hct 42.4 (35.5-45.6) % MCV 92 (84-94) fl MCH 31 (28-32) pg MCHC 34 (32-34) % RDW 15.2 (13.2-15.2) % Plt Count 329 (140-440) K/mm3 Lymph % (Auto) 22.6 (13.4-35.0) % Ziebach % (Auto) 8.2 H (0.0-7.3) % Eos % (Auto) 0.8 (0.0-4.3) % Baso % (Auto) 1.2 (0.0-1.8) % Lymph # 1.9 (1.2-5.4) K/mm3 Ziebach # 0.7 (0.0-0.8) K/mm3 Eos # 0.1 (0.0-0.4) K/mm3 Baso # 0.1 (0.0-0.1) K/mm3 Seg Neutrophils % 67.2 (40.0-70.0) % Seg Neutrophils # 5.8 (1.8-7.7) K/mm3 PT 13.3 (12.2-14.9) Sec. INR 1.04 (0.87-1.13) APTT 26.9 (24.2-36.6) Sec. Thrombin Time (15.1-19.6) Sec. Sodium 137 (137-145) mmol/L Potassium 3.8 (3.6-5.0) mmol/L Chloride 102.7 (98-107) mmol/L Carbon Dioxide 20 L (22-30) mmol/L Anion Gap 18 mmol/L BUN 15 (9-20) mg/dL Creatinine 0.9 (0.8-1.5) mg/dL Estimated GFR > 60 ml/min BUN/Creatinine Ratio 17 % Glucose 109 H (75-100) mg/dL POC Glucose (70-105) Calcium 9.1 (8.4-10.2) mg/dL Troponin T < 0.010 (0.00-0.029) ng/mL 08/17/18 08/17/18 Range/Units 21:59 22:37 WBC (4.5-11.0) K/mm3 RBC (3.65-5.03) M/mm3 Hgb (11.8-15.2) gm/dl Hct (35.5-45.6) % MCV (84-94) fl MCH (28-32) pg MCHC (32-34) % RDW (13.2-15.2) % Plt Count (140-440) K/mm3 Lymph % (Auto) (13.4-35.0) % Ziebach % (Auto) (0.0-7.3) % Eos % (Auto) (0.0-4.3) % Baso % (Auto) (0.0-1.8) % Lymph # (1.2-5.4) K/mm3 Ziebach # (0.0-0.8) K/mm3 Eos # (0.0-0.4) K/mm3 Baso # (0.0-0.1) K/mm3 Seg Neutrophils % (40.0-70.0) % Seg Neutrophils # (1.8-7.7) K/mm3 PT (12.2-14.9) Sec. INR (0.87-1.13) APTT (24.2-36.6) Sec. Thrombin Time 15.2 (15.1-19.6) Sec. Sodium (137-145) mmol/L Potassium (3.6-5.0) mmol/L Chloride (98-107) mmol/L Carbon Dioxide (22-30) mmol/L Anion Gap mmol/L BUN (9-20) mg/dL Creatinine (0.8-1.5) mg/dL Estimated GFR ml/min BUN/Creatinine Ratio % Glucose (75-100) mg/dL POC Glucose 105 (70-105) Calcium (8.4-10.2) mg/dL Troponin T (0.00-0.029) ng/mL - EKG Data EKG shows normal: sinus rhythm, axis, intervals, QRS complexes Rate: normal 08/17/18 23:38 EKG obtained at 2202 Normal sinus rhythm rate 65 beats a minute normal, axis normal intervals no ST-T signs of ischemia - Radiology Data Radiology results: report reviewed - Medical Decision Making CT head: Prior left craniotomy, vasogenic edema on the left, right matter changes on the left and right, subdural low-density collection presumably postoperative in nature, difficult to exclude ischemic changes Code stroke was initiated prior to patient's arrival. Upon arrival patient was taken immediately to CT scan. Upon return to exam room. Patient was evaluated by telenneurologist Dr. Carmichael. I did discuss CT findings with both neurologist and radiologist who discovered The findings of a low-density subdural collection on the left with vasogenic edema which could explain patient's symptoms. Differential diagnosis includes neurological deficits due to postoperative complication or acute CVA. CT head and neck angiogram obtained to exclude large vessel occlusion. I discussed case transfer center neurologically service at [facility]. TPA is not indicated Due to history of recent brain surgery. NIH stroke scale [address] Anderson stroke attending at [facility]. He recommended transfer to [facility]. He accepted the patient to stepdown unit. He agreed that the patient would benefit from neurosurgical evaluation. He did not feel that endovascular intervention is currently indicated. Awaiting bed assignment. Also waiting further instruction from neurosurgery. - Core Measures AMI Core Measures Followed: Yes - Thrombolytic Inclusion/Exclusion Thrombolytic Contraindications: Head Trauma in Past 3 Mon Critical Care Time: Yes Critical care time in (mins) excluding proc time.: 40 Critical care attestation.: If time is entered above; I have spent that time in minutes in the direct care of this critically ill patient, excluding procedure time. 40 minutes of critical care time excluding procedures were used in the care of the patient. Patient required multiple assessments and interventions. I reviewed the electronic medical record. I spoke with consultants involved in the care of the patient. ED Disposition Clinical Impression: Hygroma, Acute CVA (cerebrovascular accident), Status post craniotomy Disposition: [id number]/TX-[id number] ANOTHER TYPE HLTHCARE Is pt being admited?: No Does the pt Need Aspirin: No Condition: Stable
--- NOTE | 2018-08-18 01:36 | Cat Scan Report ---
PROCEDURE: CT ANGIO NECK HISTORY: acute cva FINDINGS: Contrast-enhanced CT angiography of the neck was performed following the intravenous admini stration of 100 cc Omnipaque 350. Data was reformatted into sagittal and coronal planes. The pulmonary apices appear clear. The right common carotid artery is widely patent. The internal carotid, external carotid and vertebra l arteries appear widely patent. On the left, the common carotid artery is widely patent. The internal carotid, external carotid and v ertebral arteries are widely patent. In both carotid bulbs there is linear low density, sagittal image 52, sagittal image 104. As this is a symmetric finding it is thought unlikely to represent vessel dissection. It could represent turbule nt flow. Consider Doppler ultrasound or MRA for further evaluation, as clinically indicated There is anterior endplate remodeling at C3 C4, C4 C5, C5 C6 and C6-C7. The thyroid gland is unremarkable. The mastoid air cells and middle ears appear clear. There is no evidence of acute sinusitis. IMPRESSION: No stenosis of greater than 50% is seen in the cervical arterial vasculature Linear low density within the lumen of the carotid bulbs bilaterally. As this is a bilateral, symmetr ic finding, it is therefore thought unlikely represent vessel dissection. It could represent turbulen t flow. Consider Doppler ultrasound or MRA for further evaluation as clinically indicated This document is electronically signed by Harpal Jean Baptiste MD., August 18 2018 01:34:26 AM ET
--- NOTE | 2018-08-18 01:45 | Cat Scan Report ---
PROCEDURE: CT ANGIO HEAD TECHNIQUE: Computerized tomographic angiography of the head was performed after the IV injection of iodinated nonionic contrast including image processing. The image data was postprocessed using 2-dim ensional multiplanar reformatted (MPR) and 3-dimensional (MIP and/or volume rendered) techniques. HISTORY: acute cva FINDINGS: Contrast-enhanced CT angiography of the brain was performed following the intravenous admin istration 100 cc Omnipaque 350. Data was reformatted in the sagittal and coronal planes. Comparison i s made to the unenhanced examination August 17, 2018. In the posterior circulation both vertebral arteries are patent. The basilar artery is patent. The le ft posterior cerebral artery is seen appears patent. The right posterior cerebral artery appears very small. In the anterior circulation, the internal carotid artery is patent. The right middle cerebral artery and anterior cerebral arteries appear patent. The left middle cerebral artery is patent in the M1 segment but the vessel is not seen distally. Ther e is hypoenhancement within the distribution of the left middle cerebral artery, best appreciated axi al image 52, suspicious for acute or subacute infarct. This was called by Dr. Jean Bpatiste to Dr. Osorio oa at approximately 1:36 AM. The left anterior cerebral artery is patent. The has been a left frontoparietal craniotomy, and there is encephalomalacia of the anterior aspect o f the left temporal lobe and there is a chronic-appearing left subdural hygroma lateral to the left p osterior frontal lobe and left anterior parietal lobe approximately 0.6 cm in thickness. IMPRESSION: Nonvisualization of left middle cerebral artery distal to M1 segment, suspicious for vessel occlusion . There is hypoenhancement of the distribution of the left middle cerebral artery consistent with acu te infarct. Consider diffusion-weighted MRI for further evaluation The right posterior cerebral arteries are very small vessel. No definite acute right [employer] distribution infarct is seen This document is electronically signed by Harpal Jean Baptiste MD., August 18 2018 01:43:23 AM ET
[2018-08-18 05:09] VITALS: BP 106/64
== END 2018-08-18 05:09 | disposition other institution (70) ==
LOC: ED 21:40
DX: D18.1 Lymphangioma, any site (principal); I63.9 Cerebral infarction, unspecified; E11.9 Type 2 diabetes mellitus without complications; Z91.013 Allergy to seafood; Z98.890 Other specified postprocedural states; Z79.4 Long term (current) use of insulin
CPT/HCPCS: 36415; 70450; 70496; 70498; 80048; 82962; 84484; 85025; 85610; 85670; 85730; 93005; 93010; 99285; Q9967